=== PATIENT | male | born 1955 | race Caucasian/White ===

== ENCOUNTER 2018-11-11 08:59 | Inpatient (IN) | payer MEDICARE ==
[2018-11-11] VITALS (14 sets, daily range): BP systolic 110–150; BP diastolic 67–100; Ht 182.9 cm; Wt 102.3 kg
[~2018-11-11] VITALS: Ht 182.9 cm; Wt 102.3 kg
[2018-11-11] MEDS ORDERED: GLUCOPHAGE XR750 MG PO (09:11)
[2018-11-11 09:51] LABS: ANION GAP 11.7 mmol/L (8-16); BASOPHILS 0.2 % (0-2); BILIRUBIN - TOTAL 0.81 mg/dL (0.2-1.3); CARBON DIOXIDE 25.5 mmol/L (21.0-32.0); CREATININE - SERUM 1.1 mg/dL (0.6-1.3); EOSINOPHILS 6.2 % (0-7); HEMATOCRIT 48.8 % (42.0-54.0); IMMATURE GRANULOCYTES 0.2 % (0-5); LYMPHOCYTES 26.3 % (15-50); MCH 30.5 pg (26.0-34.0); MCHC 34.8 g/dL (31.0-37.0); MCV 87.5 fL (80.0-100.0); MEAN PLATELET VOLUME 9.8 fL (7.4-10.4); MONOCYTES 7.9 % (2-11); NEUTROPHILS 59.2 % (40-80); PLATELET COUNT 215 10x3/uL (130-400); POTASSIUM - SERUM 4.2 mmol/L (3.5-5.1); PROTEIN - SERUM 7.7 g/dL (6.4-8.2); RBC 5.58 10x6/uL (4.20-6.10); RDW 13.1 % (11.5-14.5); WBC 9.4 10x3/uL (4.8-10.8)
[2018-11-11 11:02] LABS: APPEARANCE TURBID (CLEAR); BILIRUBIN NEGATIVE (NEGATIVE); COLOR RED (YELLOW); GLUCOSE 50 mg/dL (NEGATIVE); KETONE SMALL mg/dL (NEGATIVE); NITRITE NEGATIVE (NEGATIVE); PROTEIN 2+ mg/dL (NEGATIVE); SPECIFIC GRAVITY 1.015 (1.005-1.020); UROBILINOGEN NORMAL (NORMAL)
[2018-11-11 11:03] LABS: BACTERIA FEW /hpf (NONE SEEN); EPITHELIAL CELLS RARE /hpf (0-5)
[2018-11-11 11:04] LABS: RED CELLS - URINE >50 /hpf (0-5)
[2018-11-11 11:27] LABS: PROTIME 13.1 SECONDS (11.6-15.0)
[2018-11-11] MEDS ORDERED: BENICAR40 MG PO (14:08)
[2018-11-11] MEDS ORDERED: BAYER CHEWABLE81 MG PO (14:08)
[2018-11-11 17:10] LABS: BASOPHILS 0.3 % (0-2); EOSINOPHILS 3.2 % (0-7); HEMATOCRIT 44.8 % (42.0-54.0); HEMOGLOBIN 15.5 g/dL (13.5-17.5); IMMATURE GRANULOCYTES 0.2 % (0-5); LYMPHOCYTES 20.8 % (15-50); MCH 30.4 pg (26.0-34.0); MCHC 34.6 g/dL (31.0-37.0); MCV 87.8 fL (80.0-100.0); MEAN PLATELET VOLUME 9.6 fL (7.4-10.4); MONOCYTES 6.7 % (2-11); NEUTROPHILS 68.8 % (40-80); PLATELET COUNT 187 10x3/uL (130-400); RDW 13.2 % (11.5-14.5); WBC 9.5 10x3/uL (4.8-10.8)
[2018-11-11 17:30] LABS: ALBUMIN 3.7 g/dL (3.4-5.0); ALKALINE PHOSPHATASE 59 U/L (46-116); ALT (SGPT) 49 U/L (10-68); BILIRUBIN - TOTAL 0.57 mg/dL (0.2-1.3); CALC OSMOLALITY 283 mosm/kg (275-300); CALCIUM 9.6 mg/dL (8.5-10.1); CHLORIDE - SERUM 106 mmol/L (98-107); CREATININE - SERUM 0.9 mg/dL (0.6-1.3); GLUCOSE 117 mg/dL (74-106); POTASSIUM - SERUM 4.4 mmol/L (3.5-5.1); SODIUM 141 mmol/L (136-145); UREA NITROGEN 19 mg/dL (7-18); eGFR NON AFRICAN AMERICAN 90 mL/min (90-120)
[2018-11-12 00:15] VITALS: BP 125/79
[2018-11-12 05:02] VITALS: BP 120/65
[2018-11-12 06:30] LABS: BASOPHILS 0.3 % (0-2); EOSINOPHILS 5.8 % (0-7); HEMATOCRIT 43.8 % (42.0-54.0); HEMOGLOBIN 14.7 g/dL (13.5-17.5); IMMATURE GRANULOCYTES 0.3 % (0-5); LYMPHOCYTES 24.9 % (15-50); MCH 29.8 pg (26.0-34.0); MCHC 33.6 g/dL (31.0-37.0); MCV 88.8 fL (80.0-100.0); MEAN PLATELET VOLUME 9.9 fL (7.4-10.4); MONOCYTES 10.7 % (2-11); PLATELET COUNT 194 10x3/uL (130-400); RBC 4.93 10x6/uL (4.20-6.10); RDW 13.5 % (11.5-14.5); WBC 10.3 10x3/uL (4.8-10.8)
[2018-11-12 06:52] LABS: ALBUMIN 3.4 g/dL (3.4-5.0); ANION GAP 13.3 mmol/L (8-16); BILIRUBIN - TOTAL 0.71 mg/dL (0.2-1.3); CARBON DIOXIDE 23.6 mmol/L (21.0-32.0); CREATININE - SERUM 1.1 mg/dL (0.6-1.3); POTASSIUM - SERUM 3.9 mmol/L (3.5-5.1); PROTEIN - SERUM 6.9 g/dL (6.4-8.2)
--- NOTE | 2018-11-12 08:25 | OP ---
PATIENT NAME: WERNER SABA MEDICAL RECORD: [id number] :51 LOCATION:[id number] ADMISSION DATE:11/11/18 SURGEON: ARIS BARNES MD DATE OF OPERATION: 11/11/2018 SURGEON: Aris Barnes MD ANESTHESIA: TIVA by Toni Wilson CRNA DIAGNOSES: Hemorrhagic cystitis, obstructive benign prostatic hyperplasia, bladder stones times 2. PROCEDURES: Cystoscopy, bladder clot evacuation, and bladder stone removal. FINDINGS: Obstructive prostate with lateral lobe hyperplasia. Bladder filled with blood clot. After declotting, he has a heavily trabeculated bladder with cellules and diverticula. Two 1 cm size bladder stones are seen. There are no bladder tumors. SPECIMENS: Bladder stones times 2. ESTIMATED BLOOD LOSS: None. CLINICAL HISTORY: This is a 63-year-old male, who is visiting [email or web address] from [place], [place]. He developed acute onset of gross hematuria today and he went to the Emergency Room. A CT scan of the abdomen and pelvis shows some nonobstructive renal stones. He also has stones in the bladder. He has a large quantity of blood clots in the bladder. He continues to have quite severe bleeding in the urine. His urine was sent for culture. He comes now to have the blood clots evacuated. He has a history of recurrent UTIs due to obstructive BPH. Most likely, the bladder stones that he has are infected and they are the source of the recurring infections. He is not allergic to any medications. He was given Ance[facility] director of admissions to the OR. DESCRIPTION OF PROCEDURE: The patient was given IV sedation. He was placed in the dorsal lithotomy position and prepped and draped. A 21-Tunisian cystoscope with 30-degree lens was used for visualization. Findings are as outlined above. The blood clots were evacuated from the bladder using the Shipu evacuator. Finally, once the blood clots were removed, we could see a heavily trabeculated bladder with diverticula and cellules. Two bladder stones were seen. A 3-Tunisian 0-tip basket was used in each of the stones were removed individually. The stones got stuck right at the fossa navicularis. We used male sounds up to 28-Tunisian to open up the urethral meatus. This allowed the basket where the stone was passed through and the stones were entirely removed. A 20-Tunisian 3-way Cesar catheter was then inserted into the bladder and the balloon inflated with 10 cc of sterile water. The bladder had continuous bladder irrigation restarted. The patient will be kept overnight for observation. If the catheter is clear tomorrow, then the catheter can be removed and he can resume his trip back to [place], [place]. I have discussed the situation with the and advised her to have him find a urologist when he gets back home. He needs to have his obstructive BPH treated. TRANSINT:[id number] Voice Confirmation ID: [id number] DOCUMENT ID: [id number] OPERATIVE REPORT [id number] WERNER SABA, ARIS Jones MD at 0825 CC: [id number] DICTATION DATE: 11/11/181902 FLIGHT ATTENDANT: 11/11/18 5868 ADM IN [facility] [address] [place] [address]
[2018-11-12 08:53] VITALS: BP 133/79
--- NOTE | 2018-11-13 08:21 | MORECARE ---
CASE MANAGEMENT DISCHARGE SUMMARY PATIENT: WERNER SABA UNIT: [id number] ADM DATE: 11/11/18 AGE: 63 : 51 SEX: M ROOM/BED: D.2238 AUTHOR: RAYMOND SANCHEZ PHYSICIAN: REFERRING PHYSICIAN: KIERAN VIDAL MD DATE OF SERVICE: 11/13/18 Discharge Plan Patient Name: WERNER SABA Facility: [facility]:[place] : 1955 Planned Disposition: Anticipated Discharge Date: Discharge Date: 11/12/2018 Expected LOS: 0 Initial Reviewer: [email or web address] Initial Review Date: 11/13/2018 Generated: 11/13/18 9:21 am Patient Name: WERNER SABA Page [id number] at 0821 All edits/amendments must be made on the electronic document DICTATION DATE: 11/13/18820 [employer]ER: MARLA 11/13/18820 RPT#: [id number] DC DATE:11/12/18 STATUS: DIS IN [facility] [address] [facility] [place] [address] END OF REPORT
== END 2018-11-12 11:49 | disposition home or self-care (01) | DRG 690 ==
LOC: D.ER 08:59 → D.EDHOLD 13:03 → D.MS 13:21
PROVIDERS: Emergency Medicine; Family Medicine; Urology; ADMIT Family Medicine; ATTEND Family Medicine
PROC: 0TCB8ZZ Extirpation of Matter from Bladder, Via Natural or Artificial Opening Endoscopic (ICD-10-PCS; principal; 2018-11-11 16:00)
DX: N30.01 Acute cystitis with hematuria (principal); F17.213 Nicotine dependence, cigarettes, with withdrawal; N40.1 Benign prostatic hyperplasia with lower urinary tract symptoms; N13.8 Other obstructive and reflux uropathy; N21.0 Calculus in bladder; I10 Essential (primary) hypertension; E11.65 Type 2 diabetes mellitus with hyperglycemia